=== PATIENT | male | born 1960 | race Caucasian/White ===

== ENCOUNTER 2016-11-27 06:32 | Emergency (ER) | payer OTHER ==
[~2016-11-27 06:32] MED LIST: LORT5TAB PO; TOBRA.3%O OD; Z.0.NO CURRENT MEDS
[2016-11-27 06:36] VITALS: BP 144/87; PULSE 57; RESP 15; TEMP 97.5; O2SAT 97
--- NOTE | 2016-11-27 07:04 | PD ---
HPI . neck pain x this morning Chief Complaint: Pain: Acute or Chronic Time Seen by Provider: 07:04 Travel History International Travel<30 days: No Contact w/Intl Traveler<30days: No Traveled to known affect area: No History of Present Illness HPI 56-year-old male with no signal past medical history here with complaints of neck pain since this morning. Patient says that all of a sudden he woke up with right sided neck pain and has difficulty turning his neck. He denies any recent illness, photophobia, fever, or chills. He denies any strenuous activity. He has no other complaints. He request prescriptions to take home as he drove here and does not want to get drowsy etc. PFSH Past Medical History Medical History: Denies Significant Hx Past Surgical History Surgical History: No Previous Surgery Social History Alcohol Use: No Tobacco Use: No Substance Use: No Allergies-Medications (Allergen,Severity, Reaction): Coded Allergies: No Known Allergies (Verified , 11/27/16) Reported Meds & Prescriptions Reported Meds & Active Scripts Active Robaxin (Methocarbamol) 500 Mg Tab 500 Mg PO TID Ibuprofen 800 Mg Tab 800 Mg PO TID Review of Systems General / Constitutional: No: Fever, Chills Eyes: No: Photophobia, Visual changes HENT: Positive: Neck Stiffness, Neck Pain, No: Headaches, Sore Throat Cardiovascular: No: Chest Pain or Discomfort Respiratory: No: Shortness of Breath Gastrointestinal: No: Abdominal Pain Genitourinary: No: Dysuria Musculoskeletal: No: Pain Skin: No Rash Neurologic: No: Weakness, Headache Psychiatric: No: Depression Endocrine: No: Polydipsia Hematologic/Lymphatic: No: Easy Bruising Physical Exam Narrative GENERAL: AAO x 3, no acute distress, Well-nourished, well-developed patient. SKIN: Warm and dry. No visible rashes or bruising. HEAD: Normocephalic and atraumatic. EYES: No scleral icterus. No injection or drainage. EOM intact, PERRLA ENT: No nasal drainage noted. Mucous membranes pink. Airway patent. NECK: Supple, trachea midline. No JVD. no c spine tenderness, flexion and extension normal, pain with rotation, tenderness to the right side trapezius and sternocleidomastoid CARDIOVASCULAR: Regular rate and rhythm without murmurs, gallops, or rubs. RESPIRATORY: Breath sounds equal bilaterally. No accessory muscle use. No rhonchi or rales. GASTROINTESTINAL: visual inspection normal EXTREMITIES: No cyanosis or edema. BACK: Nontender without obvious deformity. No CVA tenderness. NEURO: CN II-12 intact, subpoena server strength normal b/l, UE and LE 5/5, no focal deficits PSYCH: AAO x 3, normal affect. Data Data Last Documented VS Vital Signs Date Time Temp Pulse Resp B/P Pulse Ox O2 Delivery O2 Flow Rate FiO2 11/27/16 06:36 97.5 57 15 144/87 97 Room Air MDM Medical Decision Making Medical Screen Exam Complete: Yes Emergency Medical Condition: Yes Medical Record Reviewed: Yes Differential Diagnosis cervical muscle strain, less likely c spine fracture, less likely meningitis Narrative Course 56 yr old male here with neck pain. Exam was done and he appears to have cervical muscle strain. I discussed findings with him. I explained imaging not indicated. Offered Norflex, he declined and wants oral meds to take at home. Provider Robaxin and ibuprofen. Advised follow-up with primary care provider. Patient verbalized understanding of instructions, questions were answered, and thanked me for their care. I advised them if their condition worsens, please return to the nearest emergency room for further care. Diagnosis Primary Impression: Cervical strain, acute Qualified Code: S16.1XXA - Cervical strain, acute, initial encounter Patient Instructions: General Instructions Additional Instructions: Muscle relaxers can cause drowsiness. Do not drive, swim or operate heavy machinery while using these medications. Please return to emergency department if your symptoms return or worsen. Follow up with your primary care provider. Take medications as prescribed. You can ask a family member for a massage, that may help your neck stiffness.. Med/Other Pt SpecificInfo: Prescription(s) given Scripts Methocarbamol (Robaxin)500 Mg [id number] Mg PO TID #21 TAB Prov:Hafsa Rowan DO 11/27/16 Ibuprofen 800 Mg [id number] Mg PO TID #21 TAB Prov:Hafsa Rowan DO 11/27/16 Disposition: 01 DISCHARGE HOME Condition: Stable Moraima Cunningham Nov 27, 2016 07:04
[2016-11-27] MEDS ORDERED: ROBA500T PO (07:09)
[2016-11-27] MEDS ORDERED: IBUP800T23 PO (07:09)
== END 2016-11-27 07:39 | disposition home or self-care (01) ==
LOC: NEPD 06:32
DX: S16.1XXA Strain of muscle, fascia and tendon at neck level, initial encounter (principal); Z79.899 Other long term (current) drug therapy; X58.XXXA Exposure to other specified factors, initial encounter
CPT/HCPCS: 99283